=== PATIENT | female | born 1955 | race Caucasian/White ===

== ENCOUNTER 2017-05-25 17:32 | Emergency (ER) | payer MEDICAID, SELFPAY ==
[2017-05-25 17:34] VITALS: BP 207/124; PULSE 98; RESP 16; TEMP 36.9; O2SAT 100; BMI 26.4
--- NOTE | 2017-05-25 20:25 | ED.DEP ---
ED Disposition - Plan for ED Patient: Chief Complaint: Med Refill Instructions: Med Refill Prescriptions: Imipramine Pamoate 300 mg PO QHS #60 capsule Referrals: Care Physician,No Primary [Primary Care Provider] - Counseling,Center [GROUP OF PHYSICIANS] -
--- NOTE | 2017-05-25 20:29 | ED.DCSUM_ITS ---
- ER Visit Summary Date of Service: 05/25/17 Chief Complaint: Med refill History of Present Illness: The patient is a 61 F presenting stating that she needs a medication refill. She will run out of her Imipramine tonight. She tried to get into the counseling center and is unable to get in to be seen. She has depression but denies suicidal ideation. She states she has been on this medication for several years. She is concerned about running out. No other complaints. Physical Examination: Vitals are stable. Patient is afebrile. Alert no acute distress. HEENT exam is unremarkable. Neck is supple. Lungs are clear and equal bilaterally. Heart is regular rate and rhythm. Abdomen is soft nontender nondistended. Extremities are unremarkable. Skin is warm and dry. No focal neurologic deficit. Remainder of exam is unremarkable. Emergency Department Course and Treatment: Discussed with the counseling center. She will be given a prescription of imipramine. She will follow-up with the counseling center. She is advised return ED if worsening complaints. Disposition: Discharge home Impression: Medication refill This note was generated with [employer] dictation software. It may contain incorrect words, spelling, and punctuation that were not noted in review of the chart prior to signing ED Disposition - Plan for ED Patient: Chief Complaint: Med Refill Instructions: Med Refill Prescriptions: Imipramine Pamoate 300 mg PO QHS #60 capsule Referrals: Counseling,Center [GROUP OF PHYSICIANS] - Care Physician,No Primary [Primary Care Provider] -
[2017-05-25 20:55] VITALS: BP 157/97; PULSE 64; RESP 18; O2SAT 95
== END 2017-05-25 21:05 | disposition home or self-care (01) ==
LOC: ED 19:31
PROVIDERS: Emergency Provider Emergency Medicine
DX: Z76.0 Encounter for issue of repeat prescription (principal); Z72.0 Tobacco use
CPT/HCPCS: 99282

== ENCOUNTER 2017-06-26 13:26 | Emergency (ER) | payer MEDICAID, SELFPAY ==
[2017-06-26 13:27] VITALS: BP 207/117; PULSE 124; RESP 18; TEMP 37.2; O2SAT 92; BMI 26.8
--- NOTE | 2017-06-26 14:15 | ED.DCSUM_ITS ---
- ER Visit Summary Date of Service: 06/26/17 Chief Complaint: Out of medications History of Present Illness: The patient is a 61 F she is out of her Xanax and imipramine. She says she is recently evicted from her house, and she is in the process of moving. She does not remember where she put her medications. She takes imipramine and Xanax. She is not suicidal or homicidal. She is planning to stay with her brother in [place]. Physical Examination: Hypertensive at 207/117. Afebrile. Heart rate 124. 92% on room air. HEENT unremarkable. Heart regular. Lungs clear. Abdomen soft. Patient is dirty and unkempt. Alert and oriented. Good concentration. Depressed mood and flat affect. Test Results: Patient declined Emergency Department Course and Treatment: I reviewed the patient with the crisis counselor. She was given a prescription of Xanax 0.5 mg in April but has not received any from them since. She was previously in this emergency department about 1 month ago and received a prescription for imipramine. She also received a prescription about a week ago from her crisis counselor. I will give the patient a prescription for imipramine 1 week. I will not prescribe benzodiazepines. She declined any further testing or interventions. She is not suicidal or homicidal. No indication for involuntary admission. Patient is unkempt and dirty, and she states that this is because she is poor and has been in the process of moving. Follow up with her PCP for hypertension and other chronic medical issues. Return for any new or worsening issues. Treatment Plan: As above Disposition: Discharged Impression: 1. Medication refill 2. Hypertension This note was generated with [employer] dictation software. It may contain incorrect words, spelling, and punctuation that were not noted in review of the chart prior to signing ED Disposition - Plan for ED Patient: Chief Complaint: Mental Health Referrals: Care Physician,No Primary [Primary Care Provider] -
--- NOTE | 2017-06-26 14:15 | ED.DEP ---
ED Disposition - Plan for ED Patient: Chief Complaint: Mental Health Instructions: Using Antidepressants Prescriptions: Imipramine Pamoate 300 mg PO QHS 7 Days #14 cap Additional Instructions: Follow-up with your doctors and the crisis center for recheck. Return for new or worsening issues.
[2017-06-26 14:33] VITALS: PULSE 110; RESP 16
== END 2017-06-26 14:34 | disposition home or self-care (01) ==
LOC: ED 14:25
PROVIDERS: Emergency Provider Emergency Medicine
DX: I10 Essential (primary) hypertension (principal); Z76.0 Encounter for issue of repeat prescription; R00.0 Tachycardia, unspecified; E11.9 Type 2 diabetes mellitus without complications; F32.9 Major depressive disorder, single episode, unspecified; F41.9 Anxiety disorder, unspecified; F40.01 Agoraphobia with panic disorder; Z87.891 Personal history of nicotine dependence; Z79.899 Other long term (current) drug therapy
CPT/HCPCS: 99282